=== PATIENT | female | born 1990 | race Two or more races ===

== ENCOUNTER 2019-11-14 14:37 | Emergency (ER) | payer SELFPAY ==
[~2019-11-14] VITALS: Ht 167.6 cm; Wt 99.8 kg
[2019-11-14 14:40] VITALS: BP 118/71
[2019-11-14 15:42] LABS: BASOPHILS % (AUTO) 0.9 % (0.0-2.0); EOSINOPHILS % (AUTO) 0.5 % (0.0-3.0); HEMATOCRIT 41.7 % (37.0-47.0); LYMPHOCYTES % (AUTO) 20.4 % (20.0-45.0); MEAN CORPUSCULAR VOLUME 92 FL (80-99); MONOCYTES % (AUTO) 6.2 % (1.0-10.0); PLATELET COUNT 216 K/UL (150-450); RED BLOOD COUNT 4.54 M/UL (4.20-5.40); RED CELL DISTRIBUTION WIDTH 11.8 % (11.6-14.8); WHITE BLOOD COUNT 10.3 K/UL (4.8-10.8)
[2019-11-14 15:58] LABS: ANION GAP 18 mmol/L (5-15); BLOOD UREA NITROGEN 18 mg/dL (7-18); CALCIUM 8.2 MG/DL (8.5-10.1); CARBON DIOXIDE 17 MMOL/L (21-32); CHLORIDE 107 MMOL/L (98-107); CREATININE 0.7 MG/DL (0.55-1.30); POTASSIUM 3.6 MMOL/L (3.5-5.1); SODIUM 142 MMOL/L (136-145)
[2019-11-14 16:02] LABS: ALANINE AMINOTRANSFERASE 39 U/L (12-78); ALBUMIN 3.9 G/DL (3.4-5.0); ALBUMIN/GLOBULIN RATIO 1.2 (1.0-2.7); ALKALINE PHOSPHATASE 99 U/L (46-116); ASPARTATE AMINO TRANSFERASE 30 U/L (15-37); BILIRUBIN,TOTAL 0.3 MG/DL (0.2-1.0)
[2019-11-14 16:14] LABS: APPEARANCE,URINE SLIGHTLY CLOUDY; BILIRUBIN, URINE NEGATIVE (NEGATIVE); COLOR,URINE PALE YELLOW; GLUCOSE, URINE (UA) NEGATIVE (NEGATIVE); KETONES,URINE 1+ (NEGATIVE); LEUKOCYTE ESTERASE ,URINE 3+ (NEGATIVE); NITRITE,URINE NEGATIVE (NEGATIVE); PH,URINE 5 (4.5-8.0); PROTEIN,URINE NEGATIVE (NEGATIVE); UROBILINOGEN,URINE NORMAL MG/DL (0.0-1.0)
[2019-11-14] MEDS ORDERED: cefTRIAXone 1 GM in NS 55 ML IVPB ONE (16:45)
--- NOTE | 2019-11-14 18:38 | Emergency Room Report ---
History of Present Illness General Chief Complaint: Alcohol Intoxication Source: EMS Present Illness HPI 29-year-old female with no known significant past medical history brought in by paramedics due to alcohol intoxication. According to the report patient was sitting next to a liquor store on the curb side leaning against a wall and holding a bottle of alcohol in her hand and gradually drinking. Patient was witnessed by the Doctor kinetic and there was no head injury or trauma. Paramedics were called as patient started being intoxicated. Denies any drug use. Patient is not alert upon arrival sleeping however after hydration patient currently had she did have a headache sitting outside and did not want to believe that alcohol had anything to do with it and reported she always drinks. Vomit has been noted all over her. Denies any head injury or nosebleed. Patient speaks in full sentences, has not addressed, and give me her home name. Denies . Allergies: Coded Allergies: No Known Allergies (Unverified , 11/14/19) COVID-19 Screening Contact w/high risk pt: No Experienced COVID-19 symptoms?: No COVID-19 Testing performed LOG MANAGER: No Patient History Past Medical History: see triage record Past Surgical History: none Pertinent Family History: none Now: No Immunizations: UTD Reviewed Nursing Documentation: PMH: Agreed; PSxH: Agreed Nursing Documentation-PMH Past Medical History: No Stated History Review of Systems All Other Systems: negative except mentioned in HPI Physical Exam Vital Signs Date Time Temp Pulse Resp B/P (MAP) Pulse Ox O2 Delivery O2 Flow Rate FiO2 11/14/19 14:33 98.8 71 16 121/84 (96) 98 Room Air Sp02 EP Interpretation: reviewed, normal General Appearance: mild distress, other - intoxicated Head: normocephalic, atraumatic Eyes: bilateral eye normal inspection, bilateral eye PERRL ENT: hearing grossly normal, normal pharynx, no angioedema, normal voice Neck: full range of motion, supple/symm/no masses Respiratory: chest non-tender, lungs clear, normal breath sounds, speaking full sentences Cardiovascular #1: regular rate, rhythm, no edema Cardiovascular #2: 2+ carotid (R), 2+ carotid (L), 2+ radial (R), 2+ radial (L), 2+ dorsalis pedis (R), 2+ dorsalis pedis (L) Gastrointestinal: normal bowel sounds, non tender, soft, non-distended, no guarding, no rebound Genitourinary: no CVA tenderness Musculoskeletal: back normal Neurologic: alert, motor strength/tone normal, sensory intact, responsive, speech normal Psychiatric: judgement/insight normal, memory normal, mood/affect normal, no suicidal/homicidal ideation Skin: no rash Lymphatic: no adenopathy Medical Decision Making Diagnostic Impression: Primary Impression: Acute alcoholic intoxication Additional Impression: UTI (urinary tract infection) ER Course 29-year-old female with no known significant past medical history brought in by paramedics due to alcohol intoxication. According to the report patient was sitting next to a liquor store on the curb side leaning against a wall and holding a bottle of alcohol in her hand and gradually drinking. Patient was witnessed by the [employer] and there was no head injury or trauma. Paramedics were called as patient started being intoxicated. Denies any drug use. Patient is not alert upon arrival sleeping however after hydration patient currently had she did have a headache sitting outside and did not want to believe that alcohol had anything to do with it and reported she always drinks. Vomit has been noted all over her. Denies any head injury or nosebleed. Patient speaks in full sentences, has not addressed, and give me her home name. Denies . Ddx considered but are not limited to: Alcohol intoxication with altered level of consciousness, alcohol intoxication causing pancreatitis, alcohol abuse, multi drug use and alcohol intoxication Vital signs: are WNL, pt. is afebrile H&PE are most consistent with: acute alcohol intoxication< UTI treated ORDERS: cbc, cmp, UA, tox ER intervention: NS bolus, rocephin Patient was evaluated in the context of the global COVID-19 pandemic, which necessitated consideration that the patient might be at risk for infection with the SARS-COV-2 virus that causes COVID-19. Institutional protocols and algorithms that pertain to the evaluation of patients at risk for COVID-19 are in a state of rapid change based on information relieved by multiple regulatory bodies including the CDC and the federal and state organizations. These policies and algorithms were followed during the patient's care in the ED. DISCHARGE: At this time pt. is stable for d/c to home. Will provide printed patient care instructions, and any necessary prescriptions. Care plan and follow up instructions have been discussed with the patient prior to discharge. Patient to avoid alcohol, take medication as written, follow primary doctor, upon waking up patient refused any further evaluation and work-up, Last Vital Signs Date Time Temp Pulse Resp B/P (MAP) Pulse Ox O2 Delivery O2 Flow Rate FiO2 11/14/19 14:40 75 16 Room Air 11/14/19 14:40 98.8 118/71 98 Disposition: HOME, SELF-CARE Condition: Stable Referrals: NOT CHOSEN IPA/MD,REFERRING (PCP) Patient Instructions: Alcohol Abuse and Nutrition Shana Red Nov 14, 2019 18:38
[2019-11-14 18:40] VITALS: BP 114/81
== END 2019-11-14 18:42 | disposition home or self-care (01) ==
LOC: EDBD 14:37 → EMR 15:24
DX: F10.129 Alcohol abuse with intoxication, unspecified (principal); N39.0 Urinary tract infection, site not specified; Y90.8 Blood alcohol level of 240 mg/100 ml or more
CPT/HCPCS: 36415; 80053; 80307; 81003; 81025; 85025; 87086; 96361; 96365; 96375; 99284; G0480; J0696; J2405; J7030; S0028